=== PATIENT | male | born 1940 | race Hispanic/Latino ===

== ENCOUNTER 2017-11-02 05:52 | Day surgery (SDC) | payer MEDICARE, OTHER ==
[2017-11-02] MEDS ORDERED: ECOTRIN PO ONE (06:18)
[2017-11-02 06:57] LABS: Basophils % (Auto) 0.4 % (0.0-1.8); Eosinophils # (Auto) 0.1 K/mm3 (0.0-0.4); Eosinophils % (Auto) 1.7 % (0.0-4.3); Hematocrit 38.9 % (35.5-45.6); Hemoglobin 13.2 gm/dl (11.8-15.2); Lymphocytes # (Auto) 1.7 K/mm3 (1.2-5.4); Lymphocytes % (Auto) 22.3 % (13.4-35.0); Mean Corpuscular HGB Conc 34 % (32-34); Mean Corpuscular Hemoglobin 36 pg (28-32); Mean Corpuscular Volume 106 fl (84-94); Monocytes # (Auto) 0.9 K/mm3 (0.0-0.8); Platelet Count 201 K/mm3 (140-440); Red Blood Count 3.66 M/mm3 (3.65-5.03); Red Cell Distribution Width 15.5 % (13.2-15.2)
[2017-11-02] MEDS ORDERED: NACL 0.9% 500 ML 500 ML IV SCH (07:00)
[2017-11-02 07:11] LABS: BUN/Creatinine Ratio 20; Blood Urea Nitrogen 12 mg/dL (9-20); Calcium 8.8 mg/dL (8.4-10.2); Hemolysis Index 10
[2017-11-02 07:14] LABS: INR 0.94 (0.87-1.13)
[2017-11-02] MEDS ORDERED: XYLOCAINE 1% 20 mL ONE (07:59)
[2017-11-02] MEDS ORDERED: XYLOCAINE 2% INFILTRATI ONE (08:01)
[2017-11-02] MEDS ORDERED: VERSED ONE (08:05)
[2017-11-02] MEDS ORDERED: SUBLIMAZE ONE (08:06)
[2017-11-02] MEDS ORDERED: HEPARIN/NS 5000 UNIT/500ML(CATH LAB) 1,000 ML IR ONE (08:11)
[2017-11-02] MEDS ORDERED: HEPARIN 10,000 UNITS/10 ML ONE (08:17)
[2017-11-02] MEDS ORDERED: CALAN ONE (08:17)
[2017-11-02] MEDS ORDERED: NITROGLYCERIN SYRINGE 3 ML ONE (08:17)
--- NOTE | 2017-11-02 09:09 | Discharge Summary ---
Short Stay Discharge Plan Diet: low fat, low cholesterol, low salt Special Instructions: no heavy lifting, other (Post cardiac cath instructions.) Follow up with: HAILEY GARLAND MD [Primary Care Provider] - 7 Days MATHEUS JULIAN MD [Staff Physician] - 7 Days
--- NOTE | 2017-11-02 09:24 | Cardiac Catherization Report ---
HISTORY: The patient is a 76-year-old male, who was noted to have an abnormal EKG and he underwent a stress thallium study that was abnormal, so coronary angiography was recommended. PROCEDURE: Left heart catheterization, ventriculography, and coronary angiography via the right radial artery using 5-Faroese Kristina catheters and a pigtail catheter. Note an aortic root injection was also performed with the pigtail. COMPLICATIONS: None. PREPROCEDURE DIAGNOSIS: Coronary artery disease. POSTPROCEDURE DIAGNOSES: Very mild coronary artery disease. TISSUE SAMPLES: None. SEDATION: Intravenous Versed and fentanyl. ESTIMATED BLOOD LOSS: 10 to 20 mL. SEDATION TIME: 8:16 a.m. PROCEDURE START TIME: 8:23 a.m. PROCEDURE END TIME: 8:44 a.m. Total sedation time: Twenty eight minutes. HEMODYNAMICS: Central aortic pressure 149/91. Left ventricular pressure 155/25. ANGIOGRAPHIC RESULTS: 1. Left ventricle: The ventriculogram reveals a normal sized left ventricle with normal systolic function. The ejection fraction is approximately 65%. 2. Right coronary artery: This is a dominant vessel with mild atherosclerotic changes. There are no significant lesions. There is minimal calcification. Left coronary artery: Mild calcification. Mild atherosclerotic changes in a diffuse pattern. 3. Intraaortic: Aortic root injection demonstrates mild dilatation of the aortic root. There is no evidence of aortic regurgitation or aortic valve calcification. FINAL IMPRESSION: Very mild coronary artery disease with normal left ventricular function and mild dilatation of the aortic root. PLAN: Office followup within 1 week. Aggressive medical therapy, CAD risk factor modification. The patient will be cleared for upcoming surgery. JOB# [id number] VaneDS/NTS
[2017-11-02] MEDS ORDERED: ULTRAM PO PRN (09:30)
[2017-11-02 12:14] VITALS: BP 127/72
== END 2017-11-02 11:30 | disposition home or self-care (01) ==
LOC: CATHLABREC 05:52
PROVIDERS: ATTEND Internal Medicine
DX: I25.10 Atherosclerotic heart disease of native coronary artery without angina pectoris (principal); I77.819 Aortic ectasia, unspecified site; I44.7 Left bundle-branch block, unspecified; K21.9 Gastro-esophageal reflux disease without esophagitis; M10.9 Gout, unspecified; I10 Essential (primary) hypertension; E78.5 Hyperlipidemia, unspecified; Z98.890 Other specified postprocedural states; Z98.42 Cataract extraction status, left eye; Z98.41 Cataract extraction status, right eye; Z87.891 Personal history of nicotine dependence; Z79.01 Long term (current) use of anticoagulants; Z79.82 Long term (current) use of aspirin
CPT/HCPCS: 36415; 80048; 85025; 85610; 85730; 93005; 93010; 93458; 93567; 99156; 99157; C1894; J1644; J2250; J3010; J7040; Q9967